=== PATIENT | male | born 2000 | race Hispanic/Latino ===

== ENCOUNTER 2024-12-08 14:24 | Emergency (ER) | payer OTHER ==
[~2024-12-08] VITALS: Ht 175.3 cm; Wt 95.3 kg
[2024-12-08] MEDS: FLUORESCEIN SOD(OPTH) 1 MG STRP OP ONE (16:02)
[2024-12-08] MEDS: TETRACAINE HCL 0.5% OPTH SOLN 4 ML BTL OP ONE (16:02)
[2024-12-08 19:42] VITALS: PULSE 72; RESP 19; TEMP 98.4
[2024-12-08 20:23] VITALS: BP 142/94; O2SAT 100
== END 2024-12-08 19:45 | disposition other institution (70) ==
LOC: EDBD 15:31 → ER 15:31
DX: S05.12XA Contusion of eyeball and orbital tissues, left eye, initial encounter (principal); H53.40 Unspecified visual field defects; R51.9 Headache, unspecified; W20.8XXA Other cause of strike by thrown, projected or falling object, initial encounter; Y99.0 Civilian activity done for income or pay
CPT/HCPCS: 99284